=== PATIENT | male | born 1980 | race Caucasian/White ===

== ENCOUNTER 2021-08-10 12:39 | Emergency (ER) | payer OTHER, SELFPAY ==
--- NOTE | 2021-08-10 12:43 | ED.EAR ---
HPI - Ear Problem General Chief complaint: Ear Stated complaint: Dizziness/Ear Pain Time Seen by Provider: 08/10/21 12:45 Source: patient and RN notes reviewed History of Present Illness HPI Narrative: Patient is a 40-year-old male who presents the urgent care with complaints of dizziness and left ear clogged. Patient states that he noticed on Sunday and seems to have increased since then. Patient denies any other upper respiratory complaints. Denies of fever, cough or runny nose. Patient has not done anything for the counter for his symptoms. No other acute complaints. No acute distress noted. Patient aware of the plan of care. Some parts of this dictation were generated by voice recognition software and may contain typographical and/or grammatical inaccuracies. Related Data Allergies Allergy/AdvReac Type Severity Reaction Status Date / Time codeine Allergy Nausea and Verified 08/10/21 12:55 Vomiting Review of Systems Review of Systems: CONSTITUTIONAL: Denies fever, chills, or sweats. EYES: Denies visual changes, redness, or discharge. ENT: Reports of left ear clogged CARDIOVASCULAR: Denies chest pain, palpitations, or edema. RESPIRATORY: Denies cough or dyspnea. GASTROINTESTINAL: Denies abdominal pain, nausea, vomiting, or diarrhea. GENITOURINARY: Denies dysuria or hematuria. SKIN: Denies rash or itching. MUSCULOSKELETAL: Denies back pain, joint pain, or myalgia. NEUROLOGIC: Denies headache, numbness, or weakness.. Reports of intermittent dizziness All other systems reviewed are negative, except as documented in HPI. PMFSH Comments At the time of my signature, I reviewed and agree with the nursing past medical, surgical, social, and family history. There is no relevant family history pertinent to the patient complaint. Exam Narrative: GENERAL: This is a well-nourished, well-developed patient, in no apparent distress. HEAD: normocephalic, atraumatic. EYES: PERRL. Sclera clear/white. Vision is grossly intact. EARS: External ears normal, very mild edema to the left auditory canal without drainage, right auditory canals clear and without drainage, mild fluid noted behind bilateral TMs without otitis, TMs normal without perforation. Hearing grossly intact. NOSE: External nose normal with no obvious nasal discharge, nares without redness, no rhinorrhea. THROAT: Mucous membranes moist NECK: Neck supple CARDIOVASCULAR: Regular rate and rhythm without murmurs, gallops, or rubs. RESPIRATORY: Clear to auscultation. Breath sounds equal bilaterally. No wheezes, rales, or rhonchi. SKIN: warm, intact with no suspicious lesions or rash, good texture and turgor. NEURO: awake, alert, and oriented to person, place and time. There were no obvious focal neurologic abnormalities. EXTREMITIES: No clubbing, cyanosis, or edema. Course Course Level of Care: Express Care Visit Vital Signs Vital signs: Vital Signs Temperature 99.3 F 08/10/21 12:48 Pulse Rate 98 08/10/21 12:48 Respiratory Rate 18 08/10/21 12:48 Blood Pressure 151/90 H 08/10/21 12:48 Pulse Oximetry 99 08/10/21 12:48 Temperature 99.3 F 08/10/21 12:55 Pulse Rate 98 08/10/21 12:55 Respiratory Rate 18 08/10/21 12:55 Blood Pressure 151/90 H 08/10/21 12:55 Pulse Oximetry 99 08/10/21 12:55 Reviewed-patient is informed that they may have pre-hypertension or hypertension based on a blood pressure reading in the department. I recommend the patient call the primary care provider listed on their discharge instructions or a physician of their choice this week to arrange follow-up for further evaluation of possible pre-hypertension or hypertension. Medical Decision Making MDM Narrative Medical decision making narrative: Advised patient not to put anything in the ear such as Q-tips, peroxide or water. Only use the prescription eardrops as directed. May use warm compress and Tylenol/ibuprofen as needed. Use a daily antihistamine such as Claritin or
[2021-08-10 12:48] VITALS: BP 151/90; PULSE 98; RESP 18; TEMP 37.4; O2SAT 99
[2021-08-10 12:55] VITALS: BP 151/90; PULSE 98; RESP 18; TEMP 37.4; O2SAT 99
== END 2021-08-10 13:04 | disposition home or self-care (01) ==
PROVIDERS: Emergency Provider Nurse Practitioner Family
DX: H60.92 Unspecified otitis externa, left ear (principal)
CPT/HCPCS: 99213; G0463

== ENCOUNTER 2024-12-16 12:10 | Emergency (ER) | payer OTHER, SELFPAY ==
--- OUTSIDE RECORDS SUMMARY | 2024-12-16 12:12 | XMS_ITS | Clinical Summary ---
Author Organization [facility] Address [address] [place] [address] Phone Care Team Providers Care Bank Consultant Name Role Phone Provider, None Primary Care Provider Unavailabl e Social History Tobacco Use Types Packs/Day Years Used Date Smoking Tobacco: Never Assessed Sex and Gender Information Value Date Recorded Sex Assigned at Not on file Legal Sex Male 9:00 PM CDT Gender Identity Not on file Sexual Orientation Not on file Plan of Treatment Health Maintenance Due Date Last Done Comments Hepatitis C Virus (HCV) Screening 1980 TdaP Immunization 1980 Hepatitis B Immunization (1 of 3 - 19+ 3-dose series) 1999 Influenza Immunization (#1) 2024 SARS-COV-2 Immunization ( season) 2024 Respiratory Syncytial Virus (RSV) Immunization (Adult) (1 - 1-dose 75+ series) 2055 Meningococcal Immunization (ACWY) Aged Out No longer eligible based on patient's age to complete this topic Pneumococcal Immunization Combined Aged Out No longer eligible based on patient's age to complete this topic Rotavirus Immunization Aged Out No lo nger eligible based on patient's age to complete this topic Care Teams Bank Consultant Relationship Specialty Start Date End Date Provider, None [place] PCP - General 07/11/21
[2024-12-16 12:22] VITALS: BP 147/87; PULSE 82; RESP 18; TEMP 36.5; O2SAT 99
--- NOTE | 2024-12-16 12:25 | ED.GENADULT ---
HPI - General Adult General Chief complaint: Upper Respiratory Infection Stated complaint: Sore Throat Source: patient Mode of arrival: ambulatory Limitations: no limitations History of Present Illness HPI narrative: Patient presents for evaluation of sore throat for the last 3 days. He had improvement in his symptoms with symptom recurrence thereafter. He reports pruritus in ears. Denies any fever, chills cough, shortness, nausea, vomiting, or diarrhea. No recent sick contacts to his knowledge. He does not smoke. He is not taking any medication to assist with his symptoms. Related Data Allergies Allergy/AdvReac Type Severity Reaction Status Date / Time codeine Allergy Nausea and Verified 08/10/21 12:55 Vomiting Review of Systems Review of Systems: CONSTITUTIONAL: Denies fever, chills, or sweats. EYES: Denies visual changes, redness, or discharge. ENT: Reports sore throat and pruritus of both ears. Denies otalgia or hearing loss. CARDIOVASCULAR: Denies chest pain, palpitations, or edema. RESPIRATORY: Denies cough or dyspnea. GASTROINTESTINAL: Denies abdominal pain, nausea, vomiting, or diarrhea. GENITOURINARY: Denies dysuria or hematuria. SKIN: Denies rash or itching. MUSCULOSKELETAL: Denies back pain, joint pain, or myalgia. NEUROLOGIC: Denies headache, numbness, dizziness, or weakness. PSYCHIATRIC: Denies anxiety or depression. PMFSH Past Medical History Medical History Hypertension Diabetes Surgical History Surgical History No pertinent past surgical history Family History Family History Mother Family history non-contributory Social History Social History Substance use: never Gender identity (if verbalized by the patient): Male Spiritual care concerns: No Exam Narrative: GENERAL: Well-appearing, well-nourished, and in no acute distress. HEAD: Normocephalic, atraumatic. EYES: PERRLA and EOMI. ENT: Nares clear, no rhinorrhea or epistaxis. Mucous membranes moist. There is posterior pharyngeal erythema. Oropharynx without tonsillar hypertrophy exudate or other lesions. Ear canals ceruminous NECK: Supple. No adenopathy or masses. No carotid bruits or JVD CHEST: Clear to auscultation. No respiratory distress. No wheezes rales or rhonchi HEART: Regular rate and rhythm. No murmur heard. Normal peripheral pulses. ABDOMEN: Soft, nontender, nondistended, normal active bowel sounds. EXTREMITIES: Normal range of motion. No edema. SKIN: Warm, dry, no rash. NEURO: No focal deficits. Alert and oriented x3. PSYCH: Normal mood and affect. Course Course Emergency Course: This is a 44-year-old male who presented for evaluation of sore throat. Rapid strep negative. Will send throat culture. He requested antibiotics in the event that rapid strep was a false negative. Discharge with Augmentin. Increase hydration. Follow up with primary provider. Go to the ER for worsening symptoms. Patient in agreement with plan of care. Level of Care: Express Care Visit Vital Signs Vital signs: Vital Signs Temperature 36.5 C 12/16/24 12:22 Pulse Rate 82 12/16/24 12:22 Respiratory Rate 18 12/16/24 12:22 Blood Pressure 147/87 H 12/16/24 12:22 Pulse Oximetry 99 12/16/24 12:22 Oxygen Delivery Room Air 12/16/24 12:22 Temperature 36.5 C 12/16/24 12:22 Pulse Rate 82 12/16/24 12:22 Respiratory Rate 18 12/16/24 12:22 Blood Pressure 147/87 H 12/16/24 12:22 Pulse Oximetry 99 12/16/24 12:22 Oxygen Delivery Room Air 12/16/24 12:22 Medical Decision Making Vital Signs Vital Signs: Vital Signs Temperature 36.5 C 12/16/24 12:22 Pulse Rate 82 12/16/24 12:22 Respiratory Rate 18 12/16/24 12:22 Blood Pressure 147/87 H 12/16/24 12:22 Pulse Oximetry 99 12/16/24 12:22 Oxygen Delivery Room Air 12/16/24 12:22 Temperature 36.5 C 12/16/24 12:22 Pulse Rate 82 12/16/24 12:22 Respiratory Rate 18 12/16/24 12:22 Blood Pressure 147/87 H 12/16/24 12:22 Pulse Oximetry 99 12/16/24 12:22 Oxygen Delivery Room Air 12/16/24 12:22 Lab Data Labs: Lab Results 12/16/24 Range/Units 12:28 POC Grp A Strep Screen Negative (Negative) Discharge Plan Discharge Clinical Impression: Pharyngitis Patient Disposition: Home Condition: Stable Instructions: Antibiotic Form, Pharyngitis (ED) Patient Language: Iraqi Prescriptions: New amoxicillin-pot clavulanate 875-125 mg tablet 1 tablet PO Q12H Qty: 20 0RF Follow-up/Referrals: Bryanna Beyer DO [Physician] - Time of Disposition: 12:43
[2024-12-16 12:32] LABS: EDSTREPNEGPOS1 Negative (Negative)
== END 2024-12-16 12:47 | disposition home or self-care (01) ==
PROVIDERS: Emergency Provider Nurse Practitioner
DX: J02.9 Acute pharyngitis, unspecified (principal); I10 Essential (primary) hypertension; E11.9 Type 2 diabetes mellitus without complications
CPT/HCPCS: 87081; 87880; 99213; G0463